=== PATIENT | male | born 1995 | race Caucasian/White ===

== ENCOUNTER 2018-03-10 17:35 | Emergency (ER) | payer OTHER ==
--- NOTE | 2018-03-10 19:28 | RAD ---
Indication: Left shoulder injury. 4 views of left shoulder demonstrates no fracture. No other bone or joint abnormality is identified. IMPRESSION: No fracture of left shoulder is noted.
--- NOTE | 2018-03-10 19:36 | RAD ---
Indication: Left shoulder injury. 2 views of left clavicle demonstrates no fracture. AC joint arthritis is noted. IMPRESSION: No fracture of the left clavicle is noted.
--- NOTE | 2018-03-10 19:51 | ED ---
Upper Extremity Pain - HPI Summary HPI Summary: 23-year-old male presents with left shoulder pain today. 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 He states he felt a crunch. He denies any previous injury to the area. He denies any numbness or tingling. He hasn't taking anything for his symptoms. He has been placing ice on the area. Pain is worse when he tries lifted over 90. He is left-handed. He is a student. - History of Current Complaint Chief Complaint: EDExtremityUpper Stated Complaint: LT SHOULDER INJURY Time Seen by Provider: 03/10/18 19:34 - Allergies/Home Medications Allergies/Adverse Reactions: Allergies Allergy/AdvReac Type Severity Reaction Status Date / Time No Known Allergies Allergy Verified 03/10/18 17:56 PMH/Surg Hx/FS Hx/Imm Hx Endocrine/Hematology History: Denies: Hx Anticoagulant Therapy Cardiovascular History: Denies: Hx Myocardial Infarction Infectious Disease History: No Infectious Disease History: Reports: Traveled Outside the [place] in Last 30 Days - Family History Known Family History: Negative: Hypertension - Social History Alcohol Use: Rare Substance Use Type: Reports: None Smoking Status (MU): Never Smoked Tobacco Review of Systems Negative: Fever Negative: Chest Pain Negative: Shortness Of Breath Positive: Myalgia - left shoulder pain All Other Systems Reviewed And Are Negative: Yes Physical Exam Triage Information Reviewed: Yes Vital Signs On Initial Exam: Initial Vitals Temp Pulse Resp BP Pulse Ox 98.1 F 55 20 131/75 99 03/10/18 17:53 03/10/18 17:53 03/10/18 17:53 03/10/18 17:53 03/10/18 17:53 Vital Signs Reviewed: Yes Appearance: Positive: Well-Appearing Skin: Positive: Warm, Dry Head/Face: Positive: Normal Head/Face Inspection Eyes: Positive: Normal, Conjunctiva Clear Respiratory/Lung Sounds: Positive: Clear to Auscultation, Breath Sounds Present Cardiovascular: Positive: Normal, RRR Musculoskeletal: Positive: Strength/ROM Intact - left shoulder, Other - edema with abrasion on top of left shoulder, capillary refill less than 2 seconds, 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 - Radiology clavicle, shoulder Xray Interpretation: No Acute Changes Radiology Interpretation Completed By: Radiologist Course/Dx - Course Course Of Treatment: 23-year-old male presents with left shoulder pain today. 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 He states he felt a crunch. He denies any previous injury to the area. He denies any numbness or tingling. He hasn't taking anything for his symptoms. He has been placing ice on the area. Pain is worse when he tries lifted over 90. He is left-handed. He is a student. On exam has edema and abrasion over left shoulder. Full range of motion of left shoulder. 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 Neurovascular intact. Negative Mccarthy, Yergason, drop arm. X-ray normal. We will have follow-up with or without no improvement in a week. Patient understands agrees with plan. - Diagnoses Differential Diagnosis/HQI/PQRI: Positive: Fracture (Closed), Strain, Sprain Provider Diagnoses: Injury of left shoulder Discharge - Sign-Out/Discharge Documenting (check all that apply): Discharge/Admit/Transfer - Discharge Plan Condition: Good Disposition: HOME Patient Education Materials: Shoulder Pain (ED) Referrals: Non Staff,Doctor [Primary Care Provider] - Gavin Desai MD [Medical Doctor] - Additional Instructions: Take Tylenol and ibuprofen every 6 hours as needed for pain Ice area do range of motion as tolerated of shoulder Follow up with ortho if no improvement Return to ED if develop any new or worsening symptoms - Billing Disposition and Condition Condition: GOOD Disposition: HOME
[2018-03-10 20:44] VITALS: BP 127/69
== END 2018-03-10 20:43 | disposition home or self-care (01) ==
LOC: ED 17:35
DX: S49.92XA Unspecified injury of left shoulder and upper arm, initial encounter (principal); S40.212A Abrasion of left shoulder, initial encounter; W50.0XXA Accidental hit or strike by another person, initial encounter; Y93.67 Activity, basketball; Y92.310 Basketball court as the place of occurrence of the external cause
CPT/HCPCS: 99282